=== PATIENT | female | born 1995 ===

== ENCOUNTER 2022-02-07 11:05 | Outpatient (REF) | payer OTHER, MEDICAID, SELFPAY ==
[2022-02-07 14:18] LABS: Hematocrit 39.4 % (37.0-47.0); Hemoglobin 12.6 g/dl (12.0-16.0); Mean Corpuscular Hemoglobin 25.3 pg (27.0-33.0); Mean Corpuscular Volume 79.1 fL (80.0-98.0); Mean Platelet Volume 10.6 fL (9.4-12.3); Platelet Count 347 X10*3/uL (160-400); Red Blood Count 4.98 X10*6/uL (4.20-5.50); Red Cell Distribution Width 13.5 % (11.0-16.0); White Blood Count 10.5 X10*3/uL (4.8-10.8)
[2022-02-07 15:05] LABS: Alanine Aminotransferase 27 U/L (0-31); Albumin Level 4.2 g/dL (3.5-5.0); Alkaline Phosphatase 66 U/L (39-117); Anion Gap 16 (12-20); Aspartate Amino Transferase 26 U/L (5-31); Bilirubin Total 0.4 mg/dL (0.0-1.0); Blood Urea Nitrogen 14 mg/dL (9-16); Calcium 9.3 mg/dL (8.4-10.2); Carbon Dioxide 26 mmol/L (22-29); Chloride 102 mmol/L (96-108); Cholesterol 220 mg/dL; Estimated Glomerular Filt Rate > 60; Glucose Fasting 91 mg/dL (60-99); HDL Cholesterol 41 mg/dL; LDL Cholesterol Calculated 158 mg/dl; Potassium 4.2 mmol/L (3.3-5.1); Sodium 140 mmol/L (135-145); Total Protein 7.4 g/dL (6.5-8.0); Triglycerides 105 mg/dL
[2022-02-07 15:18] LABS: TSH reflex Free T4 8.34 uIU/mL (0.32-4.0)
[2022-02-07 15:50] LABS: Free T4 (Free Thyroxine) 0.97 ng/dL (0.71-1.85)
== END 2022-02-07 11:06 | disposition home or self-care (01) ==
LOC: HO.WFDLDS 11:05
PROVIDERS: Visit Provider Hospitalist
DX: Z00.00 Encounter for general adult medical examination without abnormal findings (principal)
CPT/HCPCS: 36415; 80053; 80061; 84439; 84443; 85027

== ENCOUNTER 2022-03-09 10:14 | Outpatient (REF) | payer OTHER, MEDICAID, SELFPAY ==
[2022-03-09 14:58] LABS: TSH reflex Free T4 3.31 uIU/mL (0.32-4.0)
== END 2022-03-09 10:15 | disposition home or self-care (01) ==
LOC: HO.WFDLDS 10:14
PROVIDERS: Visit Provider Hospitalist
DX: R79.89 Other specified abnormal findings of blood chemistry (principal)
CPT/HCPCS: 36415; 84443

== ENCOUNTER → 2022-03-14 12:19 | Outpatient (BNVA) | payer OTHER, SELFPAY | PROVIDERS: PCP Hospitalist; Visit Provider Internal Medicine Endocrinology, Diabetes & Metabolism | DX: R94.6 Abnormal results of thyroid function studies (principal); Z79.899 Other long term (current) drug therapy | CPT/HCPCS: 99202 ==

== ENCOUNTER 2022-04-25 15:35 | Outpatient (REF) | payer OTHER, SELFPAY ==
[2022-04-25 18:41] LABS: CT PCR NOT DETECTED (Not Detect.); NG PCR NOT DETECTED (Not Detect.)
[2022-04-26 09:03] LABS: BV Int Neg Control Negative (Negative); BV Int Pos Control Positive (Positive)
== END 2022-04-25 15:36 | disposition home or self-care (01) ==
LOC: HO.LNP 15:35
PROVIDERS: Visit Provider Advanced Practice Midwife
DX: Z01.419 Encounter for gynecological examination (general) (routine) without abnormal findings (principal)
CPT/HCPCS: 87480; 87491; 87510; 87591; 87660; 88142

== ENCOUNTER 2022-06-02 16:20 | Outpatient (REF) | payer OTHER, SELFPAY ==
--- NOTE | ~2022-06-02 | US_ITS ---
EXAMINATION: US PELVIS CLINICAL INFORMATION: History of irregular cycles. COMPARISON: None TECHNIQUE: Ultrasound of the pelvis is performed using both transabdominal and transvaginal transducers along with Doppler. Transvaginal imaging is performed due to inadequate visualization transabdominally. FINDINGS: Uterus is heterogeneous and measures 7.3 x 3.7 x 5.1 cm. No discrete fibroids. Uterus is retropositioned, limiting visualization. Small amount of free fluid. Endometrial thickness is 0.8 cm. Bilateral ovaries demonstrate multiple small peripheral follicles. Right ovary measures 3.1 x 2.7 x 2.3 cm, volume 10.1 mL. Left ovary measures 3.5 x 2.6 x 2.6 cm, volume 12.4 mL. US/US pelvic and transvaginal IMPRESSION: 1. Uterus is retropositioned, limiting visualization. No discrete fibroids identified. 2. Endometrium is heterogeneous with thickness of 0.8 cm. 3. Bilateral ovaries with appearance as detailed above raising possibility of polycystic ovarian syndrome. Correlation with clinical exam and laboratory recommended.
== END 2022-06-02 16:21 | disposition home or self-care (01) ==
LOC: HO.US 16:20
PROVIDERS: Visit Provider Advanced Practice Midwife
DX: E66.01 Morbid (severe) obesity due to excess calories (principal); L68.0 Hirsutism; L70.9 Acne, unspecified; Z87.42 Personal history of other diseases of the female genital tract
CPT/HCPCS: 76830; 76856

== ENCOUNTER → 2022-06-21 11:40 | Outpatient (BNVA) | payer OTHER, SELFPAY | PROVIDERS: PCP Hospitalist; Visit Provider Advanced Practice Midwife | DX: Z13.89 Encounter for screening for other disorder (principal) ==

== ENCOUNTER 2022-07-07 11:16 | Outpatient (REF) | payer OTHER, SELFPAY ==
[2022-07-07 13:48] LABS: Hematocrit 39.6 % (37.0-47.0); Hemoglobin 12.9 g/dl (12.0-16.0); Mean Corpuscular HGB Conc 32.6 g/dl (31.0-35.0); Mean Corpuscular Volume 76.6 fL (80.0-98.0); Mean Platelet Volume 10.3 fL (9.4-12.3); Platelet Count 321 X10*3/uL (160-400); Red Blood Count 5.17 X10*6/uL (4.20-5.50); Red Cell Distribution Width 14.1 % (11.0-16.0); White Blood Count 8.7 X10*3/uL (4.8-10.8)
[2022-07-07 14:28] LABS: Alanine Aminotransferase 24 U/L (0-31); Albumin Level 4.1 g/dL (3.5-5.0); Alkaline Phosphatase 66 U/L (39-117); Anion Gap 14 (12-20); Aspartate Amino Transferase 21 U/L (5-31); Bilirubin Total 0.3 mg/dL (0.0-1.0); Blood Urea Nitrogen 15 mg/dL (9-16); Carbon Dioxide 24 mmol/L (22-29); Chloride 104 mmol/L (96-108); Cholesterol 211 mg/dL; Estimated Glomerular Filt Rate > 60; Glucose Fasting 96 mg/dL (60-99); HDL Cholesterol 35 mg/dL; LDL Cholesterol Calculated 153 mg/dl; Potassium 4.1 mmol/L (3.3-5.1); Sodium 138 mmol/L (135-145); Total Protein 7.2 g/dL (6.5-8.0); Triglycerides 116 mg/dL
[2022-07-07 14:30] LABS: Estimated Average Glucose 97 mg/dL
[2022-07-07 14:43] LABS: TSH reflex Free T4 5.13 uIU/mL (0.32-4.0)
== END 2022-07-07 11:17 | disposition home or self-care (01) ==
LOC: HO.WFDLDS 11:16
PROVIDERS: Visit Provider Nurse Practitioner Family
DX: Z00.00 Encounter for general adult medical examination without abnormal findings (principal); Z13.29 Encounter for screening for other suspected endocrine disorder; Z13.1 Encounter for screening for diabetes mellitus; Z13.220 Encounter for screening for lipoid disorders
CPT/HCPCS: 36415; 80053; 80061; 83036; 84439; 84443; 85027

== ENCOUNTER 2022-07-11 15:23 | Outpatient (REF) | payer OTHER, SELFPAY ==
[2022-07-11 17:21] LABS: Free T4 (Free Thyroxine) 0.94 ng/dL (0.71-1.85); Thyroid Stimulating Hormone 4.22 uIU/mL (0.32-4.0)
[2022-07-12 07:41] LABS: Syphilis Screen Nonreactive (Nonreactive)
[2022-07-12 08:40] LABS: HBsAGNum1 0.35 S/CO (0.00-0.99); HIV AB/AG Nonreactive (Nonreactive); HIV Num 1 0.05 S/CO (0.00-0.99); Hepatitis B Surface Antigen Negative (Negative); ~HepC Num1 0.09 S/CO (0.00-0.79); ~Hepatitis C Antibody Nonreactive (Nonreactive)
[2022-07-12 17:08] LABS: Thyroid Peroxidase Antibodies 133 IU/mL (<9)
== END 2022-07-11 15:24 | disposition home or self-care (01) ==
LOC: HO.LAB 15:23
PROVIDERS: Advanced Practice Midwife; PCP Nurse Practitioner Family; Visit Provider Internal Medicine Endocrinology, Diabetes & Metabolism
DX: Z11.3 Encounter for screening for infections with a predominantly sexual mode of transmission (principal); Z11.4 Encounter for screening for human immunodeficiency virus [HIV]; L70.9 Acne, unspecified; L68.0 Hirsutism; E66.01 Morbid (severe) obesity due to excess calories; R79.89 Other specified abnormal findings of blood chemistry; Z87.42 Personal history of other diseases of the female genital tract
CPT/HCPCS: 36415; 84439; 84443; 86376; 86780; 86803; 87340; 87389

== ENCOUNTER → 2022-07-13 11:11 | Outpatient (BNVA) | payer OTHER, SELFPAY | PROVIDERS: PCP Nurse Practitioner Family; Visit Provider Internal Medicine Endocrinology, Diabetes & Metabolism | DX: R79.89 Other specified abnormal findings of blood chemistry (principal); L68.0 Hirsutism | CPT/HCPCS: 99202 ==

== ENCOUNTER 2022-09-04 08:31 | Outpatient (REF) | payer OTHER, SELFPAY ==
[2022-09-04 10:28] LABS: TSH reflex Free T4 2.31 uIU/mL (0.32-4.0)
[2022-09-04 10:30] LABS: Free T4 (Free Thyroxine) 0.98 ng/dL (0.71-1.85); Thyroid Stimulating Hormone 2.24 uIU/mL (0.32-4.0)
[2022-09-05 17:38] LABS: DHEA Sulfate 140 mcg/dL (14-349)
[2022-09-08 23:00] LABS: Testosterone, Free 6.6 pg/mL (0.1-6.4); Testosterone, Total 41 ng/dL (2-45)
== END 2022-09-04 08:32 | disposition home or self-care (01) ==
LOC: HO.LAB 08:31
PROVIDERS: PCP Nurse Practitioner Family; Visit Provider Internal Medicine Endocrinology, Diabetes & Metabolism
DX: L68.0 Hirsutism (principal); R79.89 Other specified abnormal findings of blood chemistry
CPT/HCPCS: 36415; 82627; 83498; 84402; 84403; 84439; 84443

== ENCOUNTER 2022-09-08 17:45 | Outpatient (REF) | payer OTHER, SELFPAY ==
[2022-09-08 18:30] LABS: Creatinine, mg/dL 187.16
[2022-09-08 19:17] LABS: Creatinine, 24Hr Urine 2.3 G/Day (1.0-2.0); Total Volume 24 Hour Urine 1225 mL
[2022-09-15 13:58] LABS: Cortisol Free, 24 Hr Urine 31.5 mcg/24 h (4.0-50.0); Creatinine, 24 Hr Urine 2.14 g/24 h (0.50-2.15); Total Volume, 24 Hr Urine 1225 mL
== END 2022-09-08 17:46 | disposition home or self-care (01) ==
LOC: HO.LNP 17:45
PROVIDERS: Visit Provider Internal Medicine Endocrinology, Diabetes & Metabolism
DX: L68.0 Hirsutism (principal)
CPT/HCPCS: 82530; 82570

== ENCOUNTER → 2022-12-14 14:17 | Outpatient (BNVA) | payer OTHER, SELFPAY | PROVIDERS: PCP Nurse Practitioner Family; Visit Provider Internal Medicine Endocrinology, Diabetes & Metabolism | DX: E03.9 Hypothyroidism, unspecified (principal); R79.89 Other specified abnormal findings of blood chemistry; L68.0 Hirsutism | CPT/HCPCS: 99212 ==

== ENCOUNTER 2022-12-22 12:17 | Outpatient (REF) | payer OTHER, SELFPAY | END 2022-12-22 12:18 | disposition home or self-care (01) | LOC: HO.LAB 12:17 | PROVIDERS: PCP Nurse Practitioner Family; Visit Provider Internal Medicine Endocrinology, Diabetes & Metabolism | DX: L68.0 Hirsutism (principal) | CPT/HCPCS: 36415; 82947 ==

== ENCOUNTER 2023-02-20 16:08 | Outpatient (AMB) | payer OTHER, SELFPAY ==
--- NOTE | 2023-02-20 16:09 | MHC.PC.OV ---
Vital Signs 02/20/23 16:10 Height 5 ft 2 in Weight 222 lb 6 oz BMI 40.7 BP 128/82 Blood Pressure Location Rt brachial Position Sitting Respiration 12 Pulse 95 Pulse Source Pulse Oximeter Temp 98.3 F Temp Source Temporal Artery Scan Pulse Oximetry (%) 99 Oxygen Delivery Method Room Air Intake Visit Reasons: PT Order-Back Issues Intake Note: Patient states that she has had back issues since 17 and had asked for a breast reduction due to her breast contributing to back pain and issues. Patient states that the pain is right above tail bone and it stiffens her out when doing normal day to day activities as well as lifting anything 20 lbs and up. Patient would like to get referral for PT. 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 Accompanied by: Self / Same As Patient Allergies No Known Allergies Allergy (Verified 02/20/23 16:24) Medication List - Last Reconciled 02/20/23 by Nakul Marte CNP hydroxyzine HCl 50 mg PO ONCE levothyroxine 100 mcg PO DAILY metformin ER 1,000 mg (2 x 500 mg) PO DAILY tirzepatide (Mounjaro) 5 mg (0.5 mL) subcut QWEEK 4 weeks Tobacco use date assessed: 07/07/22 Dental Screening Dental Screen Date: 02/20/23 Did you have a dental visit in the last 12 months?: Yes Did you have a dental problem in the last 6 months where you did not have access to dental care?: No Was dental information given to patient?: Patient has dentist HPI HPI Comments History of Present Illness Details 27-year-old female presents with complaints of chronic back pain. She reports intermittent back pain since high school. She attributes the pain to enlarged breasts. She states the pain intensify with normal activities and lifting above 20 lb. The pain is localized to her lumbar spine. Ibuprofen provides temporary relief. No tingling, numbness, or loss of sensation. She request a referral to physical therapy. She has been unable to have surgery to do breast reduction with her current BMI. She started with management treatment with Mounjaro in October; she has lost 13 lb since starting the medication. She states she has been maintaining a healthy diet and exercise at the gym 3 times weekly. [facility] Medical History Elevated TSH Hypothyroidism Surgical History Hx of knee surgery Family History Mother Thyroid disease Bipolar 1 disorder Maternal Aunt Thyroid disease Paternal Aunt Thyroid disease Father Medical history unknown Social History Household Members: Other Housing: Apartment Alcohol intake: current Alcohol intake frequency: holidays/special occasions only Patient Tobacco Use Status: Never used Tobacco e-Cigarette/Vaping Use: Never Used service: No Current occupational status: unemployed Cognitive needs: No Hearing needs: No Vision needs: Yes Female Reproductive History Menstrual Age of Menarche: 13 Questionnaire Thrive Questionnaire Date Thrive assessed: 07/07/22 KEN-7 AMB Questionnaire KEN-7 Date KEN - 7 assessed: 07/07/22 Source: Developed by Drs. Grant Hull, Pamela Rivera, Salvador Lorenzo and colleagues, with an educational sunni from [employer]. Review of Systems Const Details: Const Denies chills, Denies fatigue, Denies fever(s), Denies headache(s) and Denies weakness ENT Denies dizziness and Denies headache(s) Card Denies chest pain, Denies lightheadedness, Denies dyspnea and Denies other (Palpitations) Resp Denies cough, Denies dyspnea, Denies wheezing and Denies other ( shortness of breath) GI Denies abdominal pain, Denies melena, Denies hematochezia, Denies change in bowel habits, Denies dyspepsia and Denies nausea Denies hematuria and Denies dysuria Musc Reports as per HPI Skin/Breast Denies rash, Denies unusual bruising and Denies wounds Neuro Denies abnormal gait, Denies dizziness, Denies headache(s), Denies memory loss, Denies numbness, Denies Sensory deficit (Neuro), Denies tingling and Denies weakness Psych Denies anxiety, Denies depression, Denies memory loss Endo Denies cold intolerance, Denies fatigue, Denies heat intolerance, Denies polydipsia and Denies polyuria Aller/Immun Denies wheezing Physical exam (Primary Care) Vital Signs: Last Vital Signs Temp 98.3 F 02/20/23 16:10 Pulse 95 02/20/23 16:10 Resp 12 02/20/23 16:10 BP 128/82 02/20/23 16:10 Pulse Ox 99 02/20/23 16:10 Oxygen Delivery Method Room Air 02/20/23 16:10 BMI result Body Mass Index 40.7 Tobacco/Smoking Status: Tobacco use Status Tobacco use date assessed 07/07/22 02/20/23 16:18 Patient Tobacco Use Status Never used Tobacco 02/20/23 16:18 e-Cigarette/Vaping Use Never Used 02/20/23 16:18 Thrive Assessment: Date of Thrive Assessment Date Thrive assessed 07/07/22 02/20/23 16:18 Const Other: General: no acute distress and well developed Nutritional Appearance: well nourished Orientation/consciousness: patient oriented x3 HENMT Head: Yes normocephalic and Yes atraumatic Eyes General: appearance normal, both eyes and all related structures Pupils: Equal, round and reactive pupils present EOM: EOMs intact bilaterally Resp Effort & Inspection: normal respiratory effort Auscultation: clear to auscultation bilaterally Cardio Rate: regular rate Rhythm: regular rhythm Heart sounds: S1 normal heart sound present, S2 normal heart sound present, no gallops, no murmurs and no rubs GI Palpation (GI): No Abdominal aortic bruit present, Soft to palpation, nontender, No hepatosplenomegaly present and No Rebound tenderness present Auscultation: normal bowel sounds General: Yes no CVA tenderness Back/Spine/Pelvis Back: no CVA tenderness Cervical Spine: cervical ROM normal and No Cervical spine tenderness Thoracic/Lumbar Spine: thoraco-lumbar ROM normal, No pain with thoraco-lumbar ROM, No thoracic spinal tenderness and lumbar spinal tenderness Extrem General: Yes normal to inspection, No edema and No calf tenderness Skin General: warm and dry. Normal skin color. Normal skin turgor Lesions: no lesions Rashes: no rashes Trauma: no lacerations or abrasions Wounds: no wounds Nails: normal Neuro General: patient oriented x3, gait normal and no focal neuro deficit Cranial nerves: Yes Equal, round and reactive pupils present Cognition (Neuro): normal cognition Gait exam (Neuro): Normal gait present Sensory Exam: No Sensory deficit (Neuro) Psych Appearance: grossly normal Affect: normal affect Attitude: cooperative Thought process: Normal thought process present Assessment and Plan Assessment & Plan (1) Chronic back pain: Code(s): M54.9 - Dorsalgia, unspecified; G89.29 - Other chronic pain Plan: Reports chronic low back pain which he attributes to enlarged breast lumbar spinal tenderness to palpation Naproxen ordered. Take as prescribed Continue to take Mounjaro for continued weight loss Healthy diet and routine exercise encouraged PT referral made Follow-up in 1 month for complete physical exam Return sooner with worsening or new symptoms Verbalized understanding and agreed with the treatment plan. (2) Laboratory tests ordered as part of a complete physical exam (CPE): Code(s): Z00.00 - Encounter for general adult medical examination without abnormal findings Plan: Fasting labs ordered as part of a complete physical exam. Advised to fast for at least 10 hours before getting labs drawn. May drink water Verbalized understanding and agreed with treatment plan. Orders: Orders Comprehensive [place]. Panel Fast Today Z00.00 - Encounter for general adult medical examination without abnormal findings Lipid Panel Today Z00.00 - Encounter for general adult medical examination without abnormal findings UA CC w/rflx Micro + Cult Today Z00.00 - Encounter for general adult medical examination without abnormal findings TSH reflex Free T4 Today Z00.00 - Encounter for general adult medical examination without abnormal findings PT Evaluation and Treatment Today G89.29 - Other chronic pain, M54.9 - Dorsalgia, unspecified Complete Blood Count Auto Diff Today Z00.00 - Encounter for general adult medical examination without abnormal findings Medications: New naproxen 500 mg PO BID PRN 60 tabs 0RF pain Coding Level of Care Code Est Pt Level 3 (14325) Diagnoses Chronic back pain M54.9; G89.29 Laboratory tests ordered as part of a complete physical exam (CPE) Z00.00
[2023-02-20 16:10] VITALS: BP 128/82; PULSE 95; RESP 12; TEMP 36.8; O2SAT 99; BMI 40.7
== END 2023-02-20 16:59 | disposition home or self-care (01) ==
PROVIDERS: PCP Nurse Practitioner Family; Visit Provider Nurse Practitioner Family
DX: M54.9 Dorsalgia, unspecified (principal); G89.29 Other chronic pain; Z00.00 Encounter for general adult medical examination without abnormal findings
CPT/HCPCS: 99213

== ENCOUNTER 2023-04-25 08:24 | Outpatient (AMB) | payer OTHER, SELFPAY ==
--- NOTE | 2023-04-25 08:29 | A.OFFPC_ITS ---
Vital Signs 04/25/23 08:31 Height 5 ft 2 in Weight 226 lb 8 oz BMI 41.4 BP 116/72 Blood Pressure Location Lt brachial Position Sitting Respiration 13 Pulse 69 Pulse Source Pulse Oximeter Temp 98.7 F Temp Source Oral Pulse Oximetry (%) 99 Oxygen Delivery Method Room Air Intake Visit Reasons: PE Intake Note: Patient is here today for her physical and would like to share her concerns. Patient states the naproxen is not helpful for her pain, physical therapy does not seem to be helpful, and she would like a referral for a breast reduction. Help Desk Support Required: No Accompanied by: Self / Same As Patient Allergies No Known Allergies Allergy (Verified 04/25/23 08:38) Medication List - Last Reconciled 04/25/23 by Nakul Marte CNP hydroxyzine HCl 50 mg PO ONCE levothyroxine 100 mcg PO DAILY metformin ER 1,000 mg (2 x 500 mg) PO DAILY naproxen 500 mg PO BID PRN Tobacco use date assessed: 04/25/23 Dental Screening Dental Screen Date: 04/25/23 Did you have a dental visit in the last 12 months?: Yes Did you have a dental problem in the last 6 months where you did not have access to dental care?: No Was dental information given to patient?: Patient has dentist HPI HPI Comments History of Present Illness Details 27-year-old female presents for complete physical exam. She has history of hypothyroidism and chronic neck and low back pain. She attributes her back pain to enlarged breasts. She notes that naproxen and physical therapy has not improved her pain. She admits to taking her medications as prescribed. She was on Mounjaro for weight loss which was effective. She lost a total of 13 lb while on the medication. However, her health plan rejected coverage of the medication. She notes that she has an appointment with plastic surgeon for consultation for breast reduction next month. She notes that she has been seen at therapist weekly for anxiousness. She denies formal diagnosis of anxiety and depression. Her last pap smear was a year ago: normal. He notes that she is sexually active, in a monogamous relationship, practices safe sex, and has no concerns for STD. PFSH Medical History Elevated TSH Hypothyroidism Surgical History Hx of knee surgery Family History Mother Thyroid disease Bipolar 1 disorder Maternal Aunt Thyroid disease Paternal Aunt Thyroid disease Father Medical history unknown Social History Household Members: Other Housing: Apartment Alcohol intake: current Alcohol intake frequency: holidays/special occasions only Patient Tobacco Use Status: Never used Tobacco e-Cigarette/Vaping Use: Never Used service: No Current occupational status: unemployed Cognitive needs: No Hearing needs: No Vision needs: Yes Female Reproductive History Menstrual Age of Menarche: 13 Questionnaire PHQ-9 Over the last 2 weeks, how often have you been bothered by any of the following problems? 1. Little interest or pleasure in doing things: not at all 2. Feeling down, depressed, or hopeless: not at all 3. Trouble falling or staying asleep, or sleeping too much: several days 4. Feeling tired or having little energy: nearly every day 5. Poor appetite or overeating: several days 6. Feeling bad about yourself - or that you are a failure or have let yourself or your family down: several days 7. Trouble concentrating on things, such as reading the newspaper or watching television: not at all 8. Moving or speaking so slowly that other people could have noticed. Or the opposite - being so fidgety or restless that you have been moving around a lot more than usual: not at all 9. Thoughts that you would be better off or of hurting yourself in some way: not at all Total score: 6 Depression Screening Interpretation: Positive Depression Screening Done: Yes 58820 - PHQ-9 Billing: Yes Source: Developed by Drs. Grant Hull, Pamela Rivera, Salvador weir nd colleagues, with an educational sunni from [employer] Thrive Questionnaire Date Thrive assessed: 04/25/23 I am a: Patient What is your living situation today?: I have a steady place to live Within the past 12 months, did the food you bought not last and you didn't have the money to get more?: Never true Within the past 12 months, did you worry whether your food would run out before you got money to buy more?: Never true Do you have trouble paying for medicines?: Yes Do you have trouble getting transportation to medical appointments?: No Do you have trouble paying your heating and electricity bill?: No Do you have trouble taking care of your child, family member or friend?: No Do you have trouble with day-to-day activities such as bathing, preparing meals, shopping, managing finances, etc.?: No Are you currently unemployed and looking for a job?: Yes Are you interested in more education?: No Please select the resources that you would like help with: None Currently or been in a relationship where the following occur: no concerns reported KEN-7 AMB Questionnaire KEN-7 Date KEN - 7 assessed: 04/25/23 Feeling nervous, anxious, or on edge: 1 = Several days Not being able to stop or control worryin = Several days Worrying too much about different things: 1 = Several days Trouble relaxin = Several days Being so restless that it is hard to sit still: 0 = Not at all Becoming easily annoyed or irritable: 1 = Several days Feeling afraid as if something awful might happen: 1 = Several days Total KEN-7 score (0-4 normal; 5-9 mild; 10-14 moderate; 15-21 severe): 6 Source: Developed by Drs. Grant Hull, Pamela Rivera, Salvador Lorenzo and colleagues, with an educational sunni from [employer]. KEN-7 Assessment Billing KEN-7 Assessment Tool: KEN-7 Assessment 62611 Review of Systems Const Details: Denies chills, Denies fatigue, Denies fever(s), Denies headache(s) and Denies weakness HEENT Denies change in vision, Denies dizziness, Denies headache(s), Denies hearing loss, Denies nasal congestion, Denies sinus pain, Denies sinus pressure and Denies sore throat Card Denies chest pain, Denies lightheadedness, Denies dyspnea and Denies other (palpitations) Resp Denies cough, Denies dyspnea and Denies wheezing GI Denies abdominal pain, Denies melena, Denies hematochezia, Denies change in bowel habits, Denies dyspepsia and Denies nausea Denies hematuria and Denies dysuria Musc Reports as per HPI Skin/Breast Denies rash, Denies unusual bruising and Denies wounds Neuro Denies abnormal gait, Denies dizziness, Denies headache(s), Denies memory loss, Denies numbness, Denies Sensory deficit (Neuro), Denies tingling and Denies weakness Psych Denies anxiety, Denies depression and Denies memory loss Endo Denies cold intolerance, Denies fatigue, Denies heat intolerance, Denies polydipsia and Denies polyuria Renard/Lymph Denies easy bleeding and Denies easy bruising Aller/Immun Denies wheezing Physical exam (Primary Care) Vital Signs: Last Vital Signs Temp 98.7 F 04/25/23 08:31 Pulse 69 04/25/23 08:31 Resp 13 04/25/23 08:31 BP 116/72 04/25/23 08:31 Pulse Ox 99 04/25/23 08:31 Oxygen Delivery Method Room Air 04/25/23 08:31 BMI result Body Mass Index 41.4 Tobacco/Smoking Status: Tobacco use Status Tobacco use date assessed 04/25/23 04/25/23 08:38 Patient Tobacco Use Status Never used Tobacco 04/25/23 08:38 e-Cigarette/Vaping Use Never Used 04/25/23 08:38 PHQ-9: PHQ-9 Score PHQ-9: Total score 6 04/25/23 09:06 Depression Screening Interpretation: Positive Thrive Assessment: Date of Thrive Assessment Date Thrive assessed 04/25/23 04/25/23 09:06 Currently or been in a relationship where the following occur: no concerns reported Const Other: General: no acute distress, well developed, alert and awake Nutritional Appearance: well nourished Orientation/consciousness: patient oriented x3 HENMT Head: Yes normocephalic and Yes atraumatic Ears: hearing grossly normal bilaterally and TM's normal bilaterally General nose exam: Normal external nose present and Normal nares present Mouth: Normal oral and palatal mucosa present and moist mucous membranes Teeth and gingiva: dentition normal Throat: Yes oropharynx normal Eyes Pupils: Equal, round and reactive pupils present and Pupil accommodation reflex normal EOM: EOMs intact bilaterally Neck Neck: Yes normal visual inspection, Yes no lymphadenopathy and Yes trachea midline Thyroid: Thyroid normal Carotids: no bruits Lymphatic: no lymphadenopathy noted Chest Chest palpation & inspection: normal inspection of the chest Resp Effort & Inspection: normal respiratory effort Auscultation: clear to auscultation bilaterally Cardio Rate: regular rate Rhythm: regular rhythm Heart sounds: S1 normal heart sound present, S2 normal heart sound present, no gallops, no murmurs and no rubs Bruits: no abdominal aortic bruits and no carotid bruits GI Palpation (GI): No Abdominal aortic bruit present, Soft to palpation, nontender, No hepatosplenomegaly present and No Rebound tenderness present Auscultation: normal bowel sounds General: Yes no CVA tenderness Back/Spine/Pelvis Back: no CVA tenderness Cervical Spine: cervical ROM normal and No Cervical spine tenderness Thoracic/Lumbar Spine: thoraco-lumbar ROM normal, No pain with thoraco-lumbar ROM, No thoracic spinal tenderness and lumbar spinal tenderness Skin General: warm and dry. Normal skin color. Normal skin turgor Lesions: no lesions Rashes: no rashes Trauma: no lacerations or abrasions Wounds: no wounds Nails: normal Neuro General: patient oriented x3, gait normal and CN's II-XI intact bilaterally Cranial nerves: Yes Equal, round and reactive pupils present Cognition (Neuro): normal cognition Gait exam (Neuro): Normal gait present Motor exam (neuro): 5/5 motor strength present throughout Sensory Exam: No Sensory deficit (Neuro) Deep tendon reflexes (DTR's): Right patellar reflex intensity grade: 2+ and Left patellar reflex intensity grade: 2+ Extrem General: Yes normal to inspection, No edema and No calf tenderness Negative straight leg raise bilaterally Psych Appearance: grossly normal Affect: normal affect Attitude: cooperative Thought process: Normal thought process present Assessment and Plan Assessment & Plan (1) Normal physical exam: Code(s): Z00.00 - Encounter for general adult medical examination without abnormal findings Plan: No significant physical restrictions or limitations noted She will follow-up for telehealth visit in 2-4 weeks for labs review Return sooner with symptoms or concerns Verbalized understanding and agreed with treatment plan. (2) Chronic back pain: Code(s): M54.9 - Dorsalgia, unspecified; G89.29 - Other chronic pain Qualifiers: Back pain laterality: midline Back pain location: low back pain Sciatica presence: without sciatica Qualified Code(s): M54.50 - Low back pain, unspecified; G89.29 - Other chronic pain Plan: Reports chronic neck and lower back pain which he attributes to enlarged breast. Her pain is refractory to naproxen and physical therapy She has an appointment with Plastic surgery for consultation of breast reduction next month Tender lumbar spine to palpation Gabapentin ordered. Take as prescribed Continue to take naproxen as prescribed Continue with physical therapy as planned Warm/cold compresses encouraged Follow-up with Plastic surgery as planned Return with worsening or new symptoms Verbalized understanding and agreed with treatment plan. (3) Cervical spine pain: Code(s): M54.2 - Cervicalgia Plan: As above Cervical spine nontender to palpation (4) Hypothyroidism: Code(s): E03.9 - Hypothyroidism, unspecified Plan: Recent TSH in August was normal, 2.31 Advised to get routine fasting blood work, including TSH done. Will review results and make changes to her care plan if warranted Continue to take levothyroxine 100 mcg daily Verbalized understanding and agreed with treatment plan. (5) Anxiety and depression: Code(s): F41.9 - Anxiety disorder, unspecified; F32.A - Depression, unspecified Plan: She notes that she has been seen at therapist weekly for anxiousness. She denies formal diagnosis of anxiety and depression PHQ-9 and KEN-7 scores revealed mild depression and anxiety Continue with weekly therapy as planned Routine exercise encouraged Return with worsening or new symptoms Verbalized understanding and agreed with treatment plan. Orders: Orders TSH reflex Free T4 3 Months E03.9 - Hypothyroidism, unspecified Medications: New gabapentin 200 mg (2 x 100 mg) PO BID PRN 60 caps 1RF pain Refilled naproxen 500 mg PO BID PRN 60 tabs 0RF pain Coding Level of Care Code Est Pt Prev Care 18-39y(49241) Diagnoses Normal physical exam Z00.00 Chronic midline low back pain without sciatica M54.50; G89.29 Back pain laterality: midline Back pain location: low back pain Sciatica presence: without sciatica Cervical spine pain M54.2 Hypothyroidism E03.9 Anxiety and depression F41.9; F32.A Additional Codes KEN-7 Assessment Billing - KEN-7 Assessment Tool: KEN-7 Assessment [id number] ([id number])
[2023-04-25 08:31] VITALS: BP 116/72; PULSE 69; RESP 13; TEMP 37.1; O2SAT 99; BMI 41.4
== END 2023-04-25 09:03 | disposition home or self-care (01) ==
PROVIDERS: PCP Nurse Practitioner Family; Visit Provider Nurse Practitioner Family
DX: Z00.00 Encounter for general adult medical examination without abnormal findings (principal); M54.50 Low back pain, unspecified; G89.29 Other chronic pain; M54.2 Cervicalgia; E03.9 Hypothyroidism, unspecified; F41.9 Anxiety disorder, unspecified; F32.A Depression, unspecified
CPT/HCPCS: 99395

== ENCOUNTER 2023-04-25 09:05 | Outpatient (REF) | payer OTHER, SELFPAY ==
[2023-04-25 11:15] LABS: MANUAL DIFF FLAG NO
[2023-04-25 11:20] LABS: Appearance Urine Cloudy; Color Urine Yellow; Glucose Urine UA Negative (Negative); Leukocyte Esterase Urine Small (1+) (Negative); Nitrite Urine Negative (Negative); Specific Gravity - Urine >= 1.030 (1.005-1.025); UMIC TRIGGER UACC YES; Urine Blood Large (3+) (Negative); Urine Ketones Negative (Negative); Urine Protein Trace mg/dL (Neg-Trace)
[2023-04-25 11:23] LABS: Bacteria Urine Trace (None Seen); Hyaline Casts Urine 0-2 /LPF (0-2); RBC Urine >20 /HPF (0-2); UACC Culture Trigger YES
[2023-04-25 11:31] LABS: Basophils Absolute Auto 0.1 X10*3/uL (0.0-0.2); Basophils Percent Auto 0.6 % (0-2); Eosinophils Absolute Auto 0.2 X10*3/uL (0.0-0.4); Eosinophils Percent Auto 2.3 % (0-4); Hematocrit 40.8 % (37.0-47.0); Imm Gran Abs Auto 0.03 X10*3/uL (0.00-0.03); Imm Gran Pct Auto 0.3 % (0.0-0.4); Lymphocytes Absolute Auto 2.3 X10*3/uL (1.2-4.9); Lymphocytes Percent Auto 22.2 % (20-40); Mean Corpuscular HGB Conc 31.9 g/dl (31.0-35.0); Mean Corpuscular Hemoglobin 25.1 pg (27.0-33.0); Mean Corpuscular Volume 78.9 fL (80.0-98.0); Mean Platelet Volume 10.7 fL (9.4-12.3); Monocytes Absolute Auto 0.6 X10*3/uL (0.1-1.2); Monocytes Percent Auto 5.8 % (2-11); Neutrophils Percent Auto 68.8 % (45-73); Platelet Count 305 X10*3/uL (160-400); Red Blood Count 5.17 X10*6/uL (4.20-5.50); Red Cell Distribution Width 13.5 % (11.0-16.0); White Blood Count 10.2 X10*3/uL (4.8-10.8)
[2023-04-25 12:07] LABS: Alanine Aminotransferase 13 U/L (0-31); Albumin Level 4.1 g/dL (3.5-5.0); Alkaline Phosphatase 60 U/L (39-117); Anion Gap 12 (12-20); Aspartate Amino Transferase 18 U/L (5-31); Bilirubin Total 0.5 mg/dL (0.0-1.0); Blood Urea Nitrogen 15 mg/dL (9-16); Calcium 8.9 mg/dL (8.4-10.2); Carbon Dioxide 26 mmol/L (22-29); Chloride 104 mmol/L (96-108); Cholesterol 208 mg/dL (<200); Estimated Glomerular Filt Rate > 60; Glucose Fasting 96 mg/dL (60-99); HDL Cholesterol 35 mg/dL (>40); LDL Cholesterol Calculated 149 mg/dL (<100); Potassium 4.1 mmol/L (3.3-5.1); Sodium 138 mmol/L (135-145); TSH reflex Free T4 1.29 uIU/mL (0.32-4.0); Total Protein 7.5 g/dL (6.5-8.0); Triglycerides 122 mg/dL (<150)
== END 2023-04-25 09:06 | disposition home or self-care (01) ==
LOC: HO.WFDLDS 09:05
PROVIDERS: Visit Provider Nurse Practitioner Family
DX: Z00.00 Encounter for general adult medical examination without abnormal findings (principal); Z12.4 Encounter for screening for malignant neoplasm of cervix
CPT/HCPCS: 36415; 80053; 80061; 81001; 84443; 85025; 87086

== ENCOUNTER 2023-05-02 15:00 | Outpatient (RCR) | payer OTHER, SELFPAY ==
--- NOTE | 2023-03-21 15:51 | MHC.PT.EP ---
[facility] [place] Office [place] Office [place] Office [address] Jimmie Magallanes [address] [phone] F: [phone] F: [phone] F: [phone] F: [phone] Physical Therapy Plan of Care Date of Evaluation: 03/20/23 Date of Surgery: n/a Diagnosis: Dorsalgia, unspecified Other chronic pain Assessment: Pt is a pleasant 27yo F who presents to PT with low back pain. She presents to PT with current impairments in pain, decreased lumbar ROM, soft tissue restrictions, decreased core stabilization, decreased hip/glute strength, and impaired body mechanics. She is limited functionally by prolonged standing, sitting on couch, bending, and stair navigation. She is an excellent candidate for skilled PT in order to address current impairments to facilitate return to PLOF. She is recommended to be seen 2x/week for 4 weeks and will be reassessed at that time Frequency and Duration: The patient will be seen 2x/week for 4 weeks Short Term Goals: Pt will be I with HEP to promote self management of symptoms Pt will improve B hip ABD strength to 4+/5 City Engineer Goals: Pt will demonstrate ability to squat and pick and shovel worker object from floor with proper body mechanics and minimal to no discomfort Pt will achieve full ROM all planes of lumbar spine with minimal to no discomfort Pt will demonstrate improvements in function as evidenced by statistically significant improvement in Modified Oswestry Low Back Pain Disability Questionnaire Treatment Plan: Modalities to reduce pain, spasms and effusion. Manual therapy to restore motion and function. Therapeutic exercise to improve strength and flexibility. Neuromuscular re-education for posture and balance. Therapeutic activities to return to functional activities of daily living. Electronically signed by: Liliana No, PT, DPT Please sign and return to therapist. Thank you for your referral.
--- NOTE | 2023-06-21 13:46 | MHC.PT.EP ---
[facility] [place] Office [place] Office [place] Office [address] Jimmie Magallanes [address] [phone] F: [phone] F: [phone] F: [phone] F: [phone] Physical Therapy Plan of Care Date of Evaluation: 03/20/23 Date of Surgery: n/a Diagnosis: Dorsalgia, unspecified Other chronic pain Assessment: Pt is a pleasant 27yo F who presents to PT with low back pain. She presents to PT with current impairments in pain, decreased lumbar ROM, soft tissue restrictions, decreased core stabilization, decreased hip/glute strength, and impaired body mechanics. She is limited functionally by prolonged standing, sitting on couch, bending, and stair navigation. She is an excellent candidate for skilled PT in order to address current impairments to facilitate return to PLOF. She is recommended to be seen 2x/week for 4 weeks and will be reassessed at that time Frequency and Duration: The patient will be seen 2x/week for 4 weeks Short Term Goals: Pt will be I with HEP to promote self management of symptoms Pt will improve B hip ABD strength to 4+/5 Integrated Circuit Fabricator Goals: Pt will demonstrate ability to squat and knot picker cloth object from floor with proper body mechanics and minimal to no discomfort Pt will achieve full ROM all planes of lumbar spine with minimal to no discomfort Pt will demonstrate improvements in function as evidenced by statistically significant improvement in Modified Oswestry Low Back Pain Disability Questionnaire Treatment Plan: Modalities to reduce pain, spasms and effusion. Manual therapy to restore motion and function. Therapeutic exercise to improve strength and flexibility. Neuromuscular re-education for posture and balance. Therapeutic activities to return to functional activities of daily living. Electronically signed by: Liliana No, PT, DPT Please sign and return to therapist. Thank you for your referral.
== END 2023-06-21 13:47 | disposition home or self-care (01) ==
LOC: HO.PT 15:00
PROVIDERS: PCP Nurse Practitioner Family; Visit Provider Nurse Practitioner Family
DX: M54.9 Dorsalgia, unspecified (principal); G89.29 Other chronic pain
CPT/HCPCS: 97110; 97112; 97161; 97530

== ENCOUNTER 2023-05-23 16:55 | Outpatient (AMB) | payer OTHER, SELFPAY ==
--- NOTE | 2023-05-23 15:53 | A.OFFPC_ITS ---
Intake Visit Reasons: lab review Intake Note: Patient states that she would need a referral to [facility] for her breast reduction. Patient would any medical records for her back and neck pain and any visits pertaining to her getting breast reduction done. Vocational Rehabilitation Technician Required: No Allergies No Known Allergies Allergy (Verified 05/23/23 16:00) Tobacco use date assessed: 04/25/23 HPI HPI Comments History of Present Illness Details This is a telephonic telehealth visit for review of recent blood work. Patient had blood work done on 04/25/2023. She denies acute symptoms. PFSH Medical History Elevated TSH Hypothyroidism Surgical History Hx of knee surgery Family History Mother Thyroid disease Bipolar 1 disorder Maternal Aunt Thyroid disease Paternal Aunt Thyroid disease Father Medical history unknown Social History Household Members: Other Housing: Apartment Alcohol intake: current Alcohol intake frequency: holidays/special occasions only Patient Tobacco Use Status: Never used Tobacco e-Cigarette/Vaping Use: Never Used service: No Current occupational status: unemployed Cognitive needs: No Hearing needs: No Vision needs: Yes Female Reproductive History Menstrual Age of Menarche: 13 Questionnaire Thrive Questionnaire Date Thrive assessed: 04/25/23 KEN-7 AMB Questionnaire KEN-7 Date KEN - 7 assessed: 04/25/23 Source: Developed by Drs. Grant Hull, Pamela Rivera, Salvador Lorenzo and colleagues, with an educational sunni from [employer]. Review of Systems Const Details: Const Denies chills, Denies fatigue, Denies fever(s), Denies headache(s) and Denies weakness ENT Denies dizziness and Denies headache(s) Card Denies chest pain, Denies lightheadedness, Denies dyspnea and Denies other (Palpitations) Resp Denies cough, Denies dyspnea, Denies wheezing and Denies other ( shortness of breath) GI Denies abdominal pain, Denies melena, Denies hematochezia, Denies change in bowel habits, Denies dyspepsia and Denies nausea Denies hematuria and Denies dysuria Musc Denies abnormal gait, Denies myalgias, Denies arthralgias, Denies numbness and Denies tingling Skin/Breast Denies rash, Denies unusual bruising and Denies wounds Neuro Denies abnormal gait, Denies dizziness, Denies headache(s), Denies memory loss, Denies numbness, Denies Sensory deficit (Neuro), Denies tingling and Denies weakness Psych Denies anxiety, Denies depression, Denies memory loss Endo Denies cold intolerance, Denies fatigue, Denies heat intolerance, Denies polydipsia and Denies polyuria Aller/Immun Denies wheezing Physical exam (Primary Care) Tobacco/Smoking Status: Tobacco use Status Tobacco use date assessed 04/25/23 05/23/23 15:56 Patient Tobacco Use Status Never used Tobacco 05/23/23 15:56 e-Cigarette/Vaping Use Never Used 05/23/23 15:56 Thrive Assessment: Date of Thrive Assessment Date Thrive assessed 04/25/23 05/23/23 15:56 Const Other: Telemedicine visit. No physical exam Telehealth Telehealth Location of provider rendering services: practice address Location of patient: address on file Patient Identification confirmed using: Name, : Yes Telehealth method: voice only Patient verbally consented to treatment: Yes Patient verbally consented to billing insurance company: Yes Patient informed of any privacy concerns related to visit: Yes Assessment and Plan Assessment & Plan (1) Hypercholesterolemia: Code(s): E78.00 - Pure hypercholesterolemia, unspecified Plan: Recent lab results reviewed with the patient. Results are unremarkable except for elevated total cholesterol and LDL level, 208 and 149 respectively, and low HDL level, 35 Advised to limit foods high in saturated fat and avoid foods high trans fat Routine exercise encouraged Will recheck lipid panel in 6 months. Advised to fast for 10-12 hours, may drink water only, and get blood work done a few days before her next visit Follow-up in 6 months Verbalized understanding and agreed with treatment plan Will also check TSH level in 6 months (2) Low HDL (under 40): Code(s): E78.6 - Lipoprotein deficiency Plan: As above Orders: Orders Lipid Panel 6 Months E78.00 - Pure hypercholesterolemia, unspecified TSH reflex Free T4 6 Months E03.9 - Hypothyroidism, unspecified Coding Level of Care Code Tele Est Pt Level 2 (73756) Diagnoses Hypercholesterolemia E78.00 Low HDL (under 40) E78.6
== END 2023-05-23 16:57 | disposition home or self-care (01) ==
PROVIDERS: PCP Nurse Practitioner Family; Visit Provider Nurse Practitioner Family
DX: E78.00 Pure hypercholesterolemia, unspecified (principal); E78.6 Lipoprotein deficiency
CPT/HCPCS: 99212

== ENCOUNTER 2023-07-05 16:03 | Outpatient (AMB) | payer OTHER, SELFPAY ==
[2023-07-05 16:04] VITALS: BP 114/74; PULSE 101; BMI 41.0
--- NOTE | 2023-07-05 16:04 | A.OFFVIS_ITS ---
Intake Vital Signs 07/05/23 16:04 Height 5 ft 2 in Weight 223 lb 15.834 oz BMI 41.0 BP 114/74 Blood Pressure Location Rt brachial Position Sitting Pulse 101 H Pulse Source Pulse Oximeter Intake Visit Reasons: f/u PCOS-confirmed Intake Note: Patient present for PCOS follow up visit. Patient reports she does take Vitamin D and is unsure of the dosage. Post Commander Required: No Accompanied by: Self / Same As Patient Allergies No Known Allergies Allergy (Verified 07/05/23 16:09) Medication List - Last Reconciled 07/05/23 by Grant Caldwell MD gabapentin 200 mg (2 x 100 mg) PO BID PRN hydroxyzine HCl 50 mg PO ONCE levothyroxine 100 mcg PO DAILY magnesium 200 mg PO DAILY metformin ER 1,000 mg (2 x 500 mg) PO DAILY naproxen 500 mg PO BID PRN tirzepatide (Mounjaro) 5 mg (0.5 mL) subcut QWEEK 4 weeks HPI HPI Comments History of Present Illness Details 26 YO Female with PMHx hypothyroidism w ho is seen in consultation at the request of her PCP for PCOS Menarche was age 13 . Menses have been irregular. Menses more regular sometimes miss OCP use: not using estradiol vaginal ring. Took BCP but had nausea .Does not want BCP Metformin use: No Weight gain: 10 lbs over last 6 mos Hirsutism/hyperandrogenism: cystic acne and gotten worse over 2 -3 yrs. Tried laser and shaving getting electrolyisi. Some Cushings sx like weakness, loss of short term memory Trying to conceive/clomiphene: No Ovarian U/S: has c/w follicles T2DM or acanthosis: has family hx of Type 2 No change in voice quality or clitoral enlargement Has snoring at night Lipids: [] Took Mounjaro 2.5 mg and then 5 mg and lost 10 lb with resolution of PCOS symptoms including normalization of menses and reduction of hirsutism- PCP is appealing Menses irregular PFSH Medical History (Updated 05/23/23 @ 16:10 by Nakul Marte CNP) Hypothyroidism Elevated TSH Surgical History Hx of tooth extraction Hx of knee surgery Family History Mother Thyroid disease Bipolar 1 disorder Maternal Aunt Thyroid disease Paternal Aunt Thyroid disease Father Medical history unknown Social History Household Members: Other Housing: Apartment Alcohol intake: current Alcohol intake frequency: holidays/special occasions only Patient Tobacco Use Status: Never used Tobacco e-Cigarette/Vaping Use: Never Used service: No Current occupational status: unemployed Cognitive needs: No Hearing needs: No Vision needs: Yes Female Reproductive History Menstrual Age of Menarche: 13 Physical Exam Vital Signs: Last Vital Signs Pulse 101 H 07/05/23 16:04 BP 114/74 07/05/23 16:04 BMI result Body Mass Index 41.0 Assessment & Plan Assessment & Plan (1) Hirsutism: Code(s): L68.0 - Hirsutism Plan: This is a 27-year-old female with history of hirsutism and irregular menses secondary to polycystic ovarian syndrome Plan is to continue the metformin I also told patient make an appointment with configuration release manager to discuss contraception. Once patient is on contraception ideally an estrogen containing control pill, could consider using spironolactone if necessary. Her primary care provider is appealing the denial of Mounjaro. (2) Elevated TSH: Code(s): R79.89 - Other specified abnormal findings of blood chemistry Plan: As above (3) Hypothyroidism: Code(s): E03.9 - Hypothyroidism, unspecified Plan: Clinically and biochemically euthyroid on levothyroxine 100 mcg q.d.. Plan is to continue the current regimen . This point, patient returned to the care of her primary care provider regarding hypothyroidism and returned back to endocrinology as needed Coding Level of Care Code Est Pt Level 3 (03963) Diagnoses Hirsutism L68.0 Elevated TSH R79.89 Hypothyroidism E03.9
== END 2023-07-05 16:32 | disposition home or self-care (01) ==
PROVIDERS: PCP Nurse Practitioner Family; Visit Provider Internal Medicine Endocrinology, Diabetes & Metabolism
DX: L68.0 Hirsutism (principal); R79.89 Other specified abnormal findings of blood chemistry; E03.9 Hypothyroidism, unspecified
CPT/HCPCS: 99213

== ENCOUNTER → 2023-07-05 16:03 | Outpatient (BNVA) | payer OTHER, SELFPAY | PROVIDERS: PCP Nurse Practitioner Family; Visit Provider Internal Medicine Endocrinology, Diabetes & Metabolism | DX: L68.0 Hirsutism (principal); R79.89 Other specified abnormal findings of blood chemistry; E03.9 Hypothyroidism, unspecified | CPT/HCPCS: 99212 ==

== ENCOUNTER 2024-01-23 09:58 | Outpatient (AMB) | payer OTHER, SELFPAY ==
[2024-01-23 09:59] VITALS: BP 112/64; PULSE 52; BMI 39.3
--- NOTE | 2024-01-23 09:59 | A.OFFVIS_ITS ---
Vital Signs 01/23/24 09:59 Height 5 ft 2 in Weight 214 lb 11.684 oz BMI 39.3 BP 112/64 Blood Pressure Location Lt brachial Position Sitting Pulse 52 Pulse Source Pulse Oximeter Intake Visit Reasons: f/u PCOS Intake Note: Patient present today for PCOS follow up visit. Dry Press Operator Helper Required: No Accompanied by: Self / Same As Patient Allergies No Known Allergies Allergy (Verified 01/23/24 10:05) HPI Comments Details: 28 YO Female with PMHx hypothyroidism who is seen in consultation at the request of her PCP for PCOS Menarche was age 13 . Menses have been irregular. Menses more regular sometimes miss OCP use: not using estradiol vaginal ring. Took BCP but had nausea .Does not want BCP Metformin use: No Weight gain: 10 lbs over last 6 mos Hirsutism/hyperandrogenism: cystic acne and gotten worse over 2 -3 yrs. Tried laser and shaving getting electrolyisi. Some Cushings sx like weakness, loss of short term memory Trying to conceive/clomiphene: No Ovarian U/S: has c/w follicles T2DM or acanthosis: has family hx of Type 2 No change in voice quality or clitoral enlargement Has snoring at night Lipids: [] Cycles are more regular . every 2 mos [facility] Medical History (Updated 05/23/23 @ 16:10 by Nakul Marte CNP) Hypothyroidism Elevated TSH Surgical History Hx of tooth extraction Hx of knee surgery Family History Mother Thyroid disease Bipolar 1 disorder Maternal Aunt Thyroid disease Paternal Aunt Thyroid disease Father Medical history unknown Social History Household Members: Other Housing: Apartment Alcohol intake: current Alcohol intake frequency: holidays/special occasions only Patient Tobacco Use Status: Never used Tobacco e-Cigarette/Vaping Use: Never Used service: No Current occupational status: unemployed Cognitive needs: No Hearing needs: No Vision needs: Yes Female Reproductive History Menstrual Age of Menarche: 13 Physical Exam Vital Signs: Last Vital Signs Pulse 52 01/23/24 09:59 BP 112/64 01/23/24 09:59 BMI result Body Mass Index 39.3 Assessment & Plan Assessment & Plan (1) Hirsutism: Code(s): L68.0 - Hirsutism Category: Medical Plan: This is a 28-year-old female with history of hirsutism and irregular menses secondary to polycystic ovarian syndrome Plan is to continue the metformin I also told patient make an appointment with business development associate to discuss contraception. Once patient is on contraception ideally an estrogen containing control pill, could consider using spironolactone if necessary. Her primary care provider is attempting to get her either Wegovy or zepbound Coding Level of Care Code Est Pt Level 3 (98971) Diagnoses Hirsutism L68.0
== END 2024-01-23 10:28 | disposition home or self-care (01) ==
PROVIDERS: PCP Nurse Practitioner Family; Visit Provider Internal Medicine Endocrinology, Diabetes & Metabolism
DX: L68.0 Hirsutism (principal)
CPT/HCPCS: 99213

== ENCOUNTER → 2024-01-23 09:58 | Outpatient (BNVA) | payer OTHER, SELFPAY | PROVIDERS: PCP Nurse Practitioner Family; Visit Provider Internal Medicine Endocrinology, Diabetes & Metabolism | DX: L68.0 Hirsutism (principal) | CPT/HCPCS: 99212 ==

== ENCOUNTER 2024-07-17 13:58 | Outpatient (REF) | payer OTHER, SELFPAY ==
--- OUTSIDE RECORDS SUMMARY | 2024-07-17 17:53 | XMS_ITS | Encounter Summary ---
Author Organization [facility] Address [address] [place] [id number] Phone Care Team Providers Care Nailer Operator Name Role Phone Marlene Mcgovern NP Primary Care Provider [phone] Encounter Details Date Type Department Care Team (Late st Contact Info) Description 06/02/2015 Documentation [facility] [place] Family Medicine [address] [place] [address] Family Medicine, Physician [address] [place], [place] [id number] Social History Tobacco Use Types Packs/Day Years Used Date Smoking Tobacco: Never Assessed Comments Unknown Sex and Gender Information Value Date Recorded Sex Assigned at Not on file Legal Sex Female 5:22 PM EDT Gender Identity Not on file Sexual Orientation Not on file documented as of this encounter Plan of Treatment Not on file documented as of this encounter Visit Diagnoses Not on filedocumented in this encounter Care Teams Nailer Operator Relationship Specialty Start Date End Date Marlene Mcgovern NP PCP - General 01/26/17 08/20/19 documented as of this encounter
--- OUTSIDE RECORDS SUMMARY | 2024-07-17 17:53 | XMS_ITS | Encounter Summary ---
Author Organization [facility] Address [address] [place] [address] Phone Care Team Providers Care Health And Safety Representative Name Role Phone Marlene Mcgovern NP Primary Care Provider [phone] Encounter Details Date Type Department Care Team (Late st Contact Info) Description 05/28/2013 Documentation [facility] [place] [address] [place] [address] Family Medicine, Physician [address] [place], [place] [id number] Social History Tobacco Use Types Packs/Day Years [...] on filedocumented in this encounter Care Teams Health And Safety Representative Relationship Specialty Start Date End Date Marlene Mcgovern NP PCP - General 01/26/17 08/20/19 documented as of this encounter
--- OUTSIDE RECORDS SUMMARY | 2024-07-17 17:53 | XMS_ITS | Encounter Summary ---
Author Organization [facility] Address [address] [place] [address] Phone Care Team Providers Care Precision Jig Grinder Name Role Phone Marlene Mcgovern NP Primary Care Provider [phone] Encounter Details Date Type Department Care Team (Late st Contact Info) Description 02/01/2017 Conversion Encounter [facility] - [address] [address] Social History Tobacco Use Types Packs/Day Years Used Date Smoking Tobacco: Never Comments:Never smoker Comments Unknown Sex and Gender Information Value Date Recorded Sex Assigned at Not on file Legal Sex Female 5:22 PM EDT Gender Identity Not on file Sexual Orientation Not on file documented as of this encounter Plan of Treatment Not on file documented as of this encounter Visit Diagnoses Not on filedocumented in this encounter Care Teams Precision Jig Grinder Relationship Specialty Start Date End Date Marlene Mcgovern NP PCP - General 01/26/17 08/20/19 documented as of this encounter
--- OUTSIDE RECORDS SUMMARY | 2024-07-17 17:53 | XMS_ITS | Clinical Summary ---
Author Organization [facility] Address [address] [place] [phone] Phone Care Team Providers Care Pelletizer Name Role Phone Unavailable Primary Care Provider Unavailabl e Allergies No known active allergies Medications medroxyPROGESTE Zac (DEPO-PROVERA) 150 MG/ML injection Inject into the muscle. 12/27/2016 Active nystatin cream APPLY TO AFFECTED AREA EVERY DAY 3 11/06/2018 Active Active Problems Problem Noted Date Diagnosed Date Large breasts 09/12/2018 Overview (09/12/2018): Has significant pain (neck, shoulder, back) due to size of breasts. Assessment & Plan (09/12/2018 10:24 AM EDT): F/u with PCP to discuss more and consider referral for breast reduction. 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 Dx 12/31/17 Adjustment disorder with mixed anxiety and depre ssed mood 10/16/2017 Overview (10/16/2017): Followed by [facility] therapist Caren Harvey Anxiety 10/12/2017 Overweight child with body mass index (BMI) > 99 % for age 0309/02/2010 Immunizations Name Administration Dates Next Due DTaP 5 09/01/2002, 9,03/15/1998,01/18,1997 H1N1 04/07/2009 HPV, Quadrivalent 12/06/2012,10/12/2011,09/03/19 11 Hep A, ped/adol 02/24/2015,12/26/2013 Hep B, ped/adol 07/21/1998,1997,1997 Hib (PRP-T) 11/22/1998, 8,01/18/1998,11/18 IPV 09/01/2002, 9,01/18/1998,11/18 Influenza, injectable, quadrivalent 03/29/2016 Influenza, injectable, trivalent 04/07/2009 MMR 08/28/2001,11/22/1998 Meningococcal Conj (Menactra) MCV4P 02/24/2015,1 Td (adult) (MBL), 2 Lf tetan us toxoid, PF, adsorbed 01/17/2019 Tdap 04/07/2009 Varicella 01/28/2019,12/26/2018 Family History Relation Name Status Comments Father Alive Father: Healthy Half-Brother Alive Half brother (M ): Alive and well Mother Alive Mother: Healthy Other Family history of Obesity, No family history of *Heart Disease, No family history of *Thrombophilia, No family history of *Sudden /OR under 55, Family history of Cancer, ovarian, No family history of *Dental caries, Family history of Diabetes mellitus, No family history of *CVA/Stroke Sister Alive Sister: Healthy Social History Tobacco Use Types Packs/Day Years Used Date Smoking Tobacco: Never Smokeless Tobacco: Never Tobacco Cessation:Counseling Given: No Comments:Never smoker Alcohol Use Standard Drinks/Week Comments No 0 (1 standard drink = 0.6 oz pur e alcohol) Hunger/Food Answer Date Recorded No 12/24/2018 Stable Housing Answer Date Recorded No 06/21/2019 Transportation Concerns Answer Date Rec orded No 12/24/2018 Hazards in Home Answer Date Recorded No 12/24/2018 Financing Utilities Answer Date Recorde d No 12/24/2018 Safety at Home Answer Date Recorded No 12/24/2018 Outside Support Answer Date Recorded No 12/24/2018 Understanding Health Concerns Answer Da te Recorded No 12/24/2018 Financing Health Concerns Answer Date R ecorded No 12/24/2018 Missing School or Work Answer Date David rded No 12/24/2018 Comments No Sex and Gender Information Value Date Recorded Sex Assigned at Not on file Legal Sex Female 5:22 PM EDT Gender Identity Not on file Sexual Orientation Not on file Last Filed Vital Signs Vital Sign Reading Time Taken Comments Blood Pressure 121/76 05/22/2019 11:22 AM EST Pulse 86 05/22/2019 11:22 AM EST Temperature 35.8 ??C (96.4 ??F) 05/22/2019 11:[address] Respiratory Rate - - Oxygen Saturation - - Inhaled Oxygen Concentration - - Weight 92.1 kg (203 lb) 05/22/2019 11:22 AM EST Height 157.5 cm (5' 2 ) 12/24/2018 3:45 PM EDT Body Mass Index 37.13 12/24/2018 3:45 PM EDT Plan of Treatment Health Maintenance Due Date Last Done Comments Influenza Vaccines (#1) 2024 03/29/2016, 04/07 COVID-19 Vaccine ( season) 2024 07/15/2021, 11/17/2020, 10/27/2020 DTaP,Tdap,and Td Vaccines (8 - Td or Tdap) 01/17/2029 01/17/2019, 04/07/2009, 09/01/2002, Additional history exists Hepatitis B Vaccines Completed 07/21/1998, 1997, 1997 HIB Vaccines Completed 11/22/1998, 02/17, 01/18/1998, Additional history exists MMR Vaccines Completed 08/28/2001, 11/22/1998 IPV Vaccines Completed 09/01/2002, 12/1998, 01/18/1998, Additional history exists HPV Vaccines Completed 12/06/2012, 09/17, 09/02/2010 Hepatitis A Vaccines Completed 02/24/2015, 12/27/19 14 Meningococcal Vaccine Completed 02/24/2015, 009 Men B Vaccine Aged Out No longer elig ible based on patient's age to complete this topic Pneumococcal Vaccine Aged Out No long er eligible based on patient's age to complete this topic Procedures * Due to [place] state law, this organization might not be sharing sensitive test results. Procedure Name Priority Date/Time Associated Diagnosis Comments CHLAMYDIA AND GONORRHEA, AMPLIFIED Routine 12/24/2018 4:12 PM EDT Screening examination for bacterial and spirochetal disease from Last 3 Months or Most Recently Relevant to Health Maintenance Results * Due to [place] state law, this organization might not be sharing sensitive test results. * Chlamydia and Gonorrhoea, Amplified (12/24/2018 4:12 PM EDT) Chlamydia Trachomatis, DNA Probe NEGATIVE (NEG) [facility] Comment: No Chlamydia Trachomatis RNA detected in this patient's sample ? (REFERENCE RANGE/NORMAL VALUE: NOT DETECTED) ? Note: This test uses director of teaching and learning- mediated amplification method to detect rRNA from C. Trachomatis URINE GC AMP PROBE NEGATIVE (NEG) [facility] Comment: No Neisseria Gonorrhoeae RNA detected in this patient's sample ? (REFERENCE RANGE/NORMAL VALUE: NOT DETECTED) ? NOTE: This test uses director of teaching and learning-mediated amplification method to detect rRNA from N.Gonorrhoeae. A negative result does not preclude infection. In the case of a negative urine result, testing of an endocervical(female) or urethral (male) specimen is recommended if there is high clinical suspicion of infection. Due to very high sensitivity of Nucleic Acid Amplification Test, false positive results may occur. Therefore, specimen handling is extremely important. In patients in whom the disease is unlikely, additional sample for testing should be considered after an initial positive result. The performance characteristics of this test have not been evaluated in children. The Aptima Combo2 assay is not intended for the evaluation of suspected sexual abuse or for other medico-legal indications. The ordering provider should assess if the patient had consensual sex without risk of sexual abuse. Consult the [facility] if needed. Contact phone number . Therapeutic failure or success cannot be determined with the Aptima Combo2 assay since nucleic acid may persist following appropriate antimicrobial therapy. The Centers for Disease Control and Prevention (CDC) recommends confirmatory retesting using culture or a different nucleic acid amplification test when positive results occur, if indicated. Testing performed or reported by [facility], a Service of [facility], [address], [place] [address] Urine 12/24/2018 4:12 PM EDT 12/24/2018 9:55 PM EDT us Marlene Mcgovern NP LAB MICROBIOLOGY - GENERAL ORDER RADHAMES Final Result [facility] from Last 3 Months or Most Recently Relevant to Health Maintenance
== END 2024-07-17 13:59 | disposition home or self-care (01) ==
LOC: HO.LAB 13:58
PROVIDERS: PCP Nurse Practitioner Family; Visit Provider Nurse Practitioner Family
DX: E03.9 Hypothyroidism, unspecified (principal)
CPT/HCPCS: 36415; 84443

== ENCOUNTER 2024-10-17 15:53 | Outpatient (AMB) | payer OTHER, SELFPAY ==
--- NOTE | 2024-10-17 15:55 | A.OFFPC_ITS ---
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 Required: No Is last menstrual period known: Yes Last menstrual period: 10/09/24 Post menopausal: No Patient : No Allergies No Known Allergies Allergy (Verified 10/17/24 16:06) Medication List - Last Reconciled 10/17/24 by Nakul Marte CNP cholecalciferol (vitamin D3) 125 mcg PO DAILY ferrous sulfate (Feosol) 325 mg PO DAILY gabapentin 200 mg (2 x 100 mg) PO BID PRN levothyroxine 100 mcg PO DAILY naproxen 500 mg PO BID PRN Tobacco use date assessed: 10/17/24 Dental Screening Dental Screen Date: 10/17/24 Did you have a dental visit in the last 12 months?: No Did you have a dental problem in the last 6 months where you did not have access to dental care?: No Was dental information given to patient?: Patient has dentist HPI HPI Comments History of Present Illness Details 29-year-old presents for hypothyroidism follow-up. Her last office visit was in 05/2023. She admits to taking levothyroxine as prescribed without adverse reactions. She offers no complaints and denies acute symptoms at this time. [facility] Medical History (Updated 05/23/23 @ 16:10 by Nakul Marte CNP) Hypothyroidism Elevated TSH Surgical History Hx of tooth extraction Hx of knee surgery Family History Mother Thyroid disease Bipolar 1 disorder Maternal Aunt Thyroid disease Paternal Aunt Thyroid disease Father Medical history unknown Social History Household Members: Other Housing: Apartment Alcohol intake: current Alcohol intake frequency: holidays/special occasions only Patient Tobacco Use Status: Never used Tobacco e-Cigarette/Vaping Use: Never Used service: No Current occupational status: unemployed Cognitive needs: No Hearing needs: No Vision needs: Yes Female Reproductive History Menstrual Age of Menarche: 13 Date of last menstrual period: 10/09/24 Questionnaire PHQ-9 Over the last 2 weeks, how often have you been bothered by any of the following problems? 1. Little interest or pleasure in doing things: not at all 2. Feeling down, depressed, or hopeless: not at all 3. Trouble falling or staying asleep, or sleeping too much: more than half the days 4. Feeling tired or having little energy: more than half the days 5. Poor appetite or overeating: not at all 6. Feeling bad about yourself - or that you are a failure or have let yourself or your family down: not at all 7. Trouble concentrating on things, such as reading the newspaper or watching television: several days 8. Moving or speaking so slowly that other people could have noticed. Or the opposite - being so fidgety or restless that you have been moving around a lot more than usual: not at all 9. Thoughts that you would be better off or of hurting yourself in some way: not at all Total score: 5 Depression Screening Interpretation: Positive Depression Screening Done: Yes Source: Developed by Drs. Grant Hull, Pamela Rivera, Salvador Lorenzo and colleagues, with an educational sunni from [employer]. Thrive Questionnaire Date Thrive assessed: 10/17/24 I am a: Patient What is your living situation today?: I choose not to answer this question Within the past 12 months, did the food you bought not last and you didn't have the money to get more?: I choose not to answer this question Within the past 12 months, did you worry whether your food would run out before you got money to buy more?: I choose not to answer this question Do you have trouble paying for medicines?: Yes Do you have trouble getting transportation to medical appointments?: I choose not to answer this question Do you have trouble paying your heating and electricity bill?: I choose not to answer this question Do you have trouble taking care of your child, family member or friend?: I choose not to answer this question Do you have trouble with day-to-day activities such as bathing, preparing meals, shopping, managing finances, etc.?: I choose not to answer this question Are you currently unemployed and looking for a job?: I choose not to answer this question Are you interested in more education?: I choose not to answer this question Please select the resources that you would like help with: None Currently or been in a relationship where the following occur: I choose not to answer THRIVE Score: 0 AUDIT C Alcohol Use Questionnaire (AUDIT-C) 1. How often do you have a drink containing alcohol?: Never 3. How often do you have six or more drinks on one occasion?: Never Total Score: 0 KEN-7 AMB Questionnaire KEN-7 Date KEN - 7 assessed: 04/25/23 Feeling nervous, anxious, or on edge: 2 = More than half the days Not being able to stop or control worryin = More than half the days Worrying too much about different things: 2 = More than half the days Trouble relaxin = More than half the days Being so restless that it is hard to sit still: 0 = Not at all Becoming easily annoyed or irritable: 2 = More than half the days Feeling afraid as if something awful might happen: 2 = More than half the days Total KEN-7 score (0-4 normal; 5-9 mild; 10-14 moderate; 15-21 severe): 12 Source: Developed by Drs. Grant Hull, Pamela Rivera, Salvador Lorenzo and colleagues, with an educational sunni from [employer]. Review of Systems Const Details: Const Denies chills, Denies fatigue, Denies fever(s), Denies headache(s) and Denies weakness ENT Denies dizziness and Denies headache(s) Card Denies chest pain, Denies lightheadedness, Denies dyspnea and Denies other (Palpitations) Resp Denies cough, Denies dyspnea, Denies wheezing and Denies other ( shortness of breath) GI Denies abdominal pain, Denies melena, Denies hematochezia, Denies change in bowel habits, Denies dyspepsia and Denies nausea Denies hematuria and Denies dysuria Musc Denies abnormal gait, Denies myalgias, Denies arthralgias, Denies numbness and Denies tingling Skin/Breast Denies rash, Denies unusual bruising and Denies wounds Neuro Denies abnormal gait, Denies dizziness, Denies headache(s), Denies memory loss, Denies numbness, Denies Sensory deficit (Neuro), Denies tingling and Denies weakness Psych Denies anxiety, Denies depression, Denies memory loss Endo Denies cold intolerance, Denies fatigue, Denies heat intolerance, Denies polydipsia and Denies polyuria Aller/Immun Denies wheezing Physical exam (Primary Care) Tobacco/Smoking Status: Tobacco use Status Tobacco use date assessed 04/25/23 10/17/24 15:57 Patient Tobacco Use Status Never used Tobacco 10/17/24 15:57 e-Cigarette/Vaping Use Never Used 10/17/24 15:57 PHQ-9: PHQ-9 Score PHQ-9: Total score 5 10/17/24 15:57 Depression Screening Interpretation: Positive Thrive Assessment: Date of Thrive Assessment Date Thrive assessed 10/17/24 10/17/24 15:57 Currently or been in a relationship where the following occur: I choose not to answer Const Other: General: no acute distress and well developed Nutritional Appearance: well nourished Orientation/consciousness: patient oriented x3 HENMT Head: Yes normocephalic and Yes atraumatic Eyes General: appearance normal, both eyes and all related structures Pupils: Equal, round and reactive pupils present EOM: EOMs intact bilaterally Resp Effort & Inspection: normal respiratory effort Auscultation: clear to auscultation bilaterally Cardio Rate: regular rate Rhythm: regular rhythm Heart sounds: S1 normal heart sound present, S2 normal heart sound present, no gallops, no murmurs and no rubs GI Palpation (GI): No Abdominal aortic bruit present, Soft to palpation, nontender, No hepatosplenomegaly present and No Rebound tenderness present Auscultation: normal bowel sounds General: Yes no CVA tenderness Back/Spine/Pelvis Back: no CVA tenderness Cervical Spine: cervical ROM normal and No Cervical spine tenderness Thoracic/Lumbar Spine: thoraco-lumbar ROM normal, No pain with thoraco-lumbar ROM, No thoracic spinal tenderness and No lumbar spinal tenderness Extrem General: Yes normal to inspection, No edema and No calf tenderness Skin General: warm and dry. Normal skin color. Normal skin turgor Neuro General: patient oriented x3, gait normal and no focal neuro deficit Cranial nerves: Yes Equal, round and reactive pupils present Cognition (Neuro): normal cognition Gait exam (Neuro): Normal gait present Sensory Exam: No Sensory deficit (Neuro) Psych Appearance: grossly normal Affect: normal affect Attitude: cooperative Thought process: Normal thought process present Coding Level of Care Code Est Pt Level 3 (32536) Diagnoses Hypothyroidism E03.9 Laboratory tests ordered as part of a complete physical exam (CPE) Z00.00 Assessment & Plan Assessment & Plan (1) Hypothyroidism: Code(s): E03.9 - Hypothyroidism, unspecified Category: Medical Plan: Recent TSH is normal. Continue current treatment regimen. Performed lipid panel blood work at least 2-3 days before next visit. Follow-up for an extended physical exam. Return sooner with symptoms or concerns. Verbalized understanding and agreed with the plan. (2) Laboratory tests ordered as part of a complete physical exam (CPE): Code(s): Z00.00 - Encounter for general adult medical examination without abnormal findings Category: Medical Plan: Fasting labs ordered as part of a complete physical exam. Advised to fast for at least 10 hours before getting labs drawn. May drink water Verbalized understanding and agreed with treatment plan. Orders: Orders Complete Blood Count Auto Diff Today Z00.00 - Encounter for general adult medical examination without abnormal findings Comprehensive Meno. Panel Fast Today Z00.00 - Encounter for general adult medical examination without abnormal findings Lipid Panel Today Z00.00 - Encounter for general adult medical examination without abnormal findings Microalbumin, Random (w Creat) Today Z00.00 - Encounter for general adult medical examination without abnormal findings UA CC w/rflx Micro + Cult Today Z00.00 - Encounter for general adult medical examination without abnormal findings Vitamin D 25-OH Total Today Z00.00 - Encounter for general adult medical examination without abnormal findings
--- OUTSIDE RECORDS SUMMARY | 2024-10-17 15:57 | XMS_ITS | Clinical Summary ---
Author Organization [facility] Address [address] [place] [address] Phone Care Team Providers Care Pocketed Spring Assembler Name Role Phone Unavailable Primary Care Provider [...] ssed mood 10/16/2017 Overview (10/16/2017): Followed by [facility] therapist Caren Harvey Anxiety 10/12/2017 Overweight child with body mass index (BMI) > 99 % for age 0309/02/2010 Immunizations Immunization Administration Dates Next Due DTaP 5 09/01/2002, [...] of *Thrombophilia, No family history of *Sudden /[place] under 55, Family history of Cancer, ovarian, [...] complete this topic Procedures * Due to [place] state law, this organization might not be sharing sensitive test results. Procedure Name Priority Date/Time Associated Diagnosis Comments CHLAMYDIA AND GONORRHEA, AMPLIFIED Routine 12/24/2018 4:12 PM EDT Screening examination for bacterial and spirochetal disease from Last 3 Months or Most Recently Relevant to Health Maintenance Results * Due to [place] state law, this organization might not be sharing sensitive test results. * Chlamydia and Gonorrhoea, Amplified (12/24/2018 4:12 PM EDT) Chlamydia Trachomatis, DNA Probe NEGATIVE (NEG) [facility] Comment: No Chlamydia Trachomatis RNA detected in this patient's sample ? (REFERENCE RANGE/NORMAL VALUE: NOT DETECTED) ? Note: This test uses leverman- mediated amplification method to detect rRNA from C. Trachomatis URINE GC AMP PROBE NEGATIVE (NEG) [facility] Comment: No Neisseria Gonorrhoeae RNA detected in this patient's sample ? (REFERENCE RANGE/NORMAL VALUE: NOT DETECTED) ? NOTE: This test uses leverman-mediated amplification method to detect rRNA from N.Gonorrhoeae. [...] without risk of sexual abuse. Consult the [facility] if needed. Contact phone number . Therapeutic failure or success cannot be determined with the Aptima Combo2 assay since nucleic acid may persist following appropriate antimicrobial therapy. The Centers for Disease Control and Prevention (CDC) recommends confirmatory retesting using culture or a different nucleic acid amplification test when positive results occur, if indicated. Testing performed or reported by [facility], a Service of [facility], [address], [place] [address] Urine 12/24/2018 4:12 PM EDT 12/24/2018 9:55 PM EDT us Marlene Mcgovern NP LAB MICROBIOLOGY - GENERAL ORDER RADHAMES Final Result [facility] from Last 3 Months or Most Recently Relevant to Health Maintenance
--- OUTSIDE RECORDS SUMMARY | 2024-10-17 15:57 | XMS_ITS | Encounter Summary ---
Author Organization [facility] Address [address] [place] [address] Phone Care Team Providers Care Pre Kindergarten Teacher Name Role Phone Marlene Mcgovern NP Primary Care Provider [phone] Encounter Details Date Type Department Care Team (Late st Contact Info) Description 05/28/2013 Documentation [facility] [place] Family Medicine [address] [place] [address] Family Medicine, Physician [address] [place], [place] [phone] Social History Tobacco Use Types Packs/Day Years [...] on filedocumented in this encounter Care Teams Pre Kindergarten Teacher Relationship Specialty Start Date End Date Marlene Mcgovern NP PCP - General 01/26/17 08/20/19 documented as of this encounter
--- OUTSIDE RECORDS SUMMARY | 2024-10-17 15:57 | XMS_ITS | Clinical Summary ---
Author Organization [facility] Address [address] [place] [address] Care Team Providers Care Marketing Intelligence Manager Name Role Phone Unavailable Primary Care Provider Unavailabl e Social History Tobacco Use Types Packs/Day Years Used Date Smoking Tobacco: Never Assessed Sex and Gender Information Value Date Recorded Sex Assigned at Female 04/16/2023 3:14 PM EDT Gender Identity Not on file Sexual Orientation Not on file Job Start Date Occupation Industry Not on file Not on file Not on file Plan of Treatment Health Maintenance Due Date Last Done Comments Hepatitis C Screening 1997 COVID-19 Vaccine (#1) 02/19/1998 Depression Screening 2009 Preventative Health Evaluation 08/20/2015 Cervical Cancer Screening (Pap Smear) 2018 DTap / Tdap / Td (7 - Td or Tdap) 04/07/2019 04/07/2009, 09/01/2002, 03/14/1999, Additional history exists Influenza Vaccine (#1) 2024 6, 04/07/2009, 04/07/2009 Hepatitis B Vaccines Completed 07/21/1998, 1997, 1997 Pneumococcal Vaccine Aged Out No long er eligible based on patient's age to complete this topic RSV Ped < 20 months Aged Out No longe r eligible based on patient's age to complete this topic
--- OUTSIDE RECORDS SUMMARY | 2024-10-17 15:57 | XMS_ITS | Encounter Summary ---
Author Organization [facility] Address [address] [place] [id number] Phone Care Team Providers Care Fish Hatchery Laborer Name Role Phone Marlene Mcgovern NP Primary Care Provider [phone] Encounter Details Date Type Department Care Team (Late st Contact Info) Description 02/01/2017 Conversion Encounter [facility] - [address] [address] Social History Tobacco Use Types Packs/Day Years [...] on filedocumented in this encounter Care Teams Fish Hatchery Laborer Relationship Specialty Start Date End Date Marlene Mcgovern NP PCP - General 01/26/17 08/20/19 documented as of this encounter
--- OUTSIDE RECORDS SUMMARY | 2024-10-17 15:57 | XMS_ITS | Encounter Summary ---
Author Organization [facility] Address [address] [place] [address] Phone Care Team Providers Care Organ Pipe Maker Metal Name Role Phone Marlene Mcgovern NP Primary Care Provider [phone] Encounter Details Date Type Department Care Team (Late st Contact Info) Description 06/02/2015 Documentation [facility] [place] [address] [place] [address] Family Medicine, Physician [address] [place], [place] [phone] Social History Tobacco Use Types Packs/Day Years [...] on filedocumented in this encounter Care Teams Organ Pipe Maker Metal Relationship Specialty Start Date End Date Marlene Mcgovern NP PCP - General 01/26/17 08/20/19 documented as of this encounter
[2024-10-17 16:02] VITALS: BP 132/58; PULSE 91; RESP 16; TEMP 37.4; O2SAT 99; BMI 37.5
== END 2024-10-17 16:15 | disposition home or self-care (01) ==
LOC: HO.HMCFM 15:54
PROVIDERS: PCP Nurse Practitioner Family; Visit Provider Nurse Practitioner Family
DX: E03.9 Hypothyroidism, unspecified (principal); Z00.00 Encounter for general adult medical examination without abnormal findings

== ENCOUNTER → 2024-10-17 15:53 | Outpatient (BNVA) | payer OTHER, SELFPAY | PROVIDERS: PCP Nurse Practitioner Family; Visit Provider Nurse Practitioner Family | DX: Z00.00 Encounter for general adult medical examination without abnormal findings (principal); E03.9 Hypothyroidism, unspecified | CPT/HCPCS: 99212 ==

== ENCOUNTER 2025-04-09 12:51 | Outpatient (REF) | payer OTHER, SELFPAY ==
[2025-04-09 13:04] LABS: MANUAL DIFF FLAG NO
[2025-04-09 13:31] LABS: Hematocrit 39.7 % (37.0-47.0); Hemoglobin 12.7 g/dl (12.0-16.0); Imm Gran Abs Auto 0.02 X10*3/uL (0.00-0.03); Imm Gran Pct Auto 0.2 % (0.0-0.4); Lymphocytes Absolute Auto 2.4 X10*3/uL (1.2-4.9); Mean Corpuscular HGB Conc 32.0 g/dl (31.0-35.0); Mean Corpuscular Hemoglobin 25.6 pg (27.0-33.0); Mean Corpuscular Volume 79.9 fL (80.0-98.0); NRBC Abs Auto 0.000 X10*3/uL (0.0-0.012); NRBC Pct Auto 0.0 /100WBC (0.0-0.2); Platelet Count 320 X10*3/uL (160-400); Red Blood Count 4.97 X10*6/uL (4.20-5.50); White Blood Count 8.2 X10*3/uL (4.8-10.8)
[2025-04-09 13:34] LABS: Appearance Urine Clear; Glucose Urine UA Negative (Negative); PH 5.5 (5.0-9.0); Specific Gravity - Urine 1.020 (1.005-1.025); UMIC TRIGGER UACC YES
[2025-04-09 14:10] LABS: Microalbum/Creatinine Ratio Ur 4.1 ug/mg cr (<30)
[2025-04-09 14:16] LABS: Alanine Aminotransferase 14 U/L (0-31); Albumin Level 4.6 g/dL (3.5-5.0); Alkaline Phosphatase 58 U/L (39-117); Anion Gap 12 (12-20); Aspartate Amino Transferase 19 U/L (5-31); Blood Urea Nitrogen 13 mg/dL (9-16); Calcium 9.1 mg/dL (8.4-10.2); Carbon Dioxide 29 mmol/L (22-29); Chloride 105 mmol/L (96-108); Cholesterol 223 mg/dL (<200); Estimated Glomerular Filt Rate > 60; HDL Cholesterol 42 mg/dL (>40); Potassium 4.5 mmol/L (3.3-5.1); Sodium 141 mmol/L (135-145); Total Protein 7.7 g/dL (6.5-8.0); Triglycerides 104 mg/dL (<150)
--- OUTSIDE RECORDS SUMMARY | 2025-04-09 16:02 | XMS_ITS | Clinical Summary ---
Author Organization [facility] Address [address] [place] [address] Care Team Providers Care Spiritual Counselor Name Role Phone Unavailable Primary Care Provider [...] 03/14/1999, Additional history exists Influenza Vaccine (#1) 2025 6, 04/07/2009, 04/07/2009 Hepatitis B Vaccines Completed 07/21/1998, 1997, 1997 Pneumococcal Vaccine Aged Out No long er eligible based on patient's age to complete this topic RSV Ped < 20 months Aged Out No longe r eligible based on patient's age to complete this topic
--- OUTSIDE RECORDS SUMMARY | 2025-04-09 16:02 | XMS_ITS | Clinical Summary ---
Author Organization [facility] Address [address] [place] [phone] Phone Care Team Providers Care Crt Name Role Phone Unavailable Primary Care Provider [...] ssed mood 10/16/2017 Overview (10/16/2017): Followed by [facility] therapist Caren Harvey Anxiety 10/12/2017 [...] of *Thrombophilia, No family history of *Sudden /[place] under 55, Family history of Cancer, ovarian, [...] 86 05/22/2019 11:22 AM EST Temperature 35.8 C (96.4 F) 05/22/2019 11:22 AM EST Respiratory Rate - - Oxygen Saturation - - Inhaled Oxygen Concentration - - Weight 92.1 kg (203 lb) 05/22/2019 11:22 AM EST Height 157.5 cm (5' 2 ) 12/24/2018 3:45 PM EDT Body Mass Index 37.13 12/24/2018 3:45 PM EDT Plan of Treatment Health Maintenance Due Date Last Done Comments Influenza Vaccines (#1) 2025 03/29/2016, 04/07 COVID-19 Vaccine ( season) 2025 07/15/2021, 11/17/2020, 10/27/2020 DTaP,Tdap,and Td Vaccines (8 [...] complete this topic Procedures * Due to [place] state law, this organization might not be sharing sensitive test results. Procedure Name Priority Date/Time Associated Diagnosis Comments CHLAMYDIA AND GONORRHEA, AMPLIFIED Routine 12/24/2018 4:12 PM EDT Screening examination for bacterial and spirochetal disease from Last 3 Months or Most Recently Relevant to Health Maintenance Results * Due to [place] state law, this organization might not be sharing sensitive test results. * Chlamydia and Gonorrhoea, Amplified (12/24/2018 4:12 PM EDT) Chlamydia Trachomatis, DNA Probe NEGATIVE (NEG) [facility] Comment: No Chlamydia Trachomatis RNA detected in this patient's sample (REFERENCE RANGE/NORMAL VALUE: NOT DETECTED) Note: This test uses project manager interior design- mediated amplification method to detect rRNA from C. Trachomatis URINE GC AMP PROBE NEGATIVE (NEG) [facility] Comment: No Neisseria Gonorrhoeae RNA detected in this patient's sample (REFERENCE RANGE/NORMAL VALUE: NOT DETECTED) NOTE: This test uses project manager interior design-mediated amplification method to detect rRNA from N.Gonorrhoeae. [...] without risk of sexual abuse. Consult the [facility] if [...] if indicated. Testing performed or reported by [facility], a Service of [facility], [address], [place] [address] Urine 12/24/2018 4:12 PM EDT 12/24/2018 9:55 PM EDT us Marlene Mcgovern NP LAB MICROBIOLOGY - GENERAL ORDER RADHAMES Final Result [facility] from Last 3 Months or Most Recently Relevant to Health Maintenance
--- OUTSIDE RECORDS SUMMARY | 2025-04-09 16:02 | XMS_ITS | Encounter Summary ---
Author Organization [facility] Address [address] [place] [address] Phone Care Team Providers Care Milling Planer Operator Name Role Phone Marlene Mcgovern NP Primary Care Provider [phone] Encounter Details Date Type Department Care Team (Late st Contact Info) Description 02/01/2017 Conversion Encounter [facility] - [address] [address] Social History Tobacco Use Types Packs/Day Years [...] on filedocumented in this encounter Care Teams Milling Planer Operator Relationship Specialty Start Date End Date Marlene Mcgovern NP PCP - General 01/26/17 08/20/19 documented as of this encounter
--- OUTSIDE RECORDS SUMMARY | 2025-04-09 16:03 | XMS_ITS | Encounter Summary ---
Author Organization [facility] Address [address] [place] [address] Phone Care Team Providers Care Grocery Store Clerk Name Role Phone Marlene Mcgovern NP Primary Care Provider [phone] Encounter Details Date Type Department Care Team (Late st Contact Info) Description 05/28/2013 Documentation [facility] [place] Family Medicine [address] [place] [address] Family Medicine, Physician [address] [place], [place] [phone] Social History Tobacco Use Types Packs/Day Years [...] on filedocumented in this encounter Care Teams Grocery Store Clerk Relationship Specialty Start Date End Date Marlene Mcgovern NP PCP - General 01/26/17 08/20/19 documented as of this encounter
--- OUTSIDE RECORDS SUMMARY | 2025-04-09 16:03 | XMS_ITS | Encounter Summary ---
Author Organization [facility] Address [address] [place] [address] Phone Care Team Providers Care Engineering Operations Leader Name Role Phone Marlene Mcgovern NP Primary Care Provider [phone] Encounter Details Date Type Department Care Team (Late st Contact Info) Description 06/02/2015 Documentation [facility] [place] [address] [place] [address] Family Medicine, Physician [address] [place], [place] [phone] Social History Tobacco Use Types Packs/Day Years [...] on filedocumented in this encounter Care Teams Engineering Operations Leader Relationship Specialty Start Date End Date Marlene Mcgovern NP PCP - General 01/26/17 08/20/19 documented as of this encounter
== END 2025-04-09 12:52 | disposition home or self-care (01) ==
LOC: HO.LAB 12:51
PROVIDERS: PCP Nurse Practitioner Family; Visit Provider Nurse Practitioner Family
DX: Z00.00 Encounter for general adult medical examination without abnormal findings (principal)
CPT/HCPCS: 36415; 80053; 80061; 81001; 82043; 82306; 82570; 85025